=== PATIENT | male | born 1980 | race Caucasian/White ===

== ENCOUNTER 2022-03-30 06:18 | Day surgery (SDC) | payer OTHER ==
[2022-03-28 15:18] VITALS: BMI 30.4
[2022-03-30] MEDS ORDERED: Oxymetazoline HCl 0.05% (30 ML BOT) ONE ×2 (07:08→08:28)
[2022-03-30] MEDS ORDERED: Bacitracin Zinc Ointment 30 gm TUBE ONE (08:28)
[2022-03-30] MEDS ORDERED: Lidocaine 1% w/Epinephrine 1:100K 20 ML VIAL ONE (08:28)
[2022-03-30] MEDS ORDERED: fentaNYL Citrate/PF 100 MCG/2 ML SYRINGE ONE (08:32)
[2022-03-30] MEDS ORDERED: Fentanyl 100 MCG/2 ML VIAL ONE (09:29)
[2022-03-30] MEDS ORDERED: PROPOFOL 200 MG/20 ML VIAL ONE (10:04)
[2022-03-30] MEDS ORDERED: Ondansetron PF 4 MG/2 ML Vial ONE (10:04)
[2022-03-30] MEDS ORDERED: Dexamethasone 20 MG/5 ML VIAL ONE (10:04)
[2022-03-30] MEDS ORDERED: Lidocaine 1% PF 5 ML VIAL ONE (10:04)
[2022-03-30] MEDS ORDERED: Glycopyrrolate 0.2 MG/ML 5 ML SYRINGE ONE (10:04)
[2022-03-30] MEDS ORDERED: Hydrocodone-Acetamin 15 ML UDCUP ONE (10:18)
== END 2022-03-30 10:57 | disposition home or self-care (01) ==
LOC: SDC 06:18
PROVIDERS: ATTEND Otolaryngology Plastic Surgery within the Head & Neck
PROC: 09SM0ZZ Reposition Nasal Septum, Open Approach (ICD-10-PCS; principal; 2022-03-30)
PROC: 09TL7ZZ Resection of Nasal Turbinate, Via Natural or Artificial Opening (ICD-10-PCS; principal; 2022-03-30)
DX: J34.2 Deviated nasal septum (principal); J34.3 Hypertrophy of nasal turbinates; J34.89 Other specified disorders of nose and nasal sinuses; J32.8 Other chronic sinusitis; J30.9 Allergic rhinitis, unspecified; J35.1 Hypertrophy of tonsils; Z79.1 Long term (current) use of non-steroidal anti-inflammatories (NSAID); Z79.899 Other long term (current) drug therapy
CPT/HCPCS: 93005; 93010; J1100; J2405; J2704; J2710; J3010